=== PATIENT | male | born 1980 | race Caucasian/White ===

== ENCOUNTER → 2019-02-18 | Outpatient (CLI) | payer MEDICARE, MEDICAID ==
--- NOTE | 2019-02-18 18:23 | REP ---
Five views left knee: 02/18/2019. Indication: Left knee trauma. Comparison: None. Findings: There is no evidence of osseous fracture or malalignment. Degenerative osteoarthritic findings are present including the patellofemoral compartment. There is no evidence of joint effusion or additional abnormal soft tissue findings. Impression: No fracture. Electronically Signed by Matty Albright DO 02/18/2019 06:14 P
== END ==
LOC: M LRY 17:51
PROVIDERS: ATTEND Nurse Practitioner Family
DX: S89.92XA Unspecified injury of left lower leg, initial encounter (principal); X50.1XXA Overexertion from prolonged static or awkward postures, initial encounter; Y92.9 Unspecified place or not applicable